=== PATIENT | female | born 1985 | race Caucasian/White ===

== ENCOUNTER 2018-01-24 12:35 | Outpatient (CLI) | payer OTHER ==
[2018-01-24] MEDS ORDERED: GADOBUTROL 7.5 MMOL/7.5 ML VIAL ONE (12:49)
[2018-01-24] MEDS ORDERED: GADOBUTROL 7.5 MMOL/7.5 ML VIAL IVP ONE (13:36)
--- NOTE | 2018-01-24 15:38 | MRI Report ---
EXAMS: MRI BRAIN WITH AND WITHOUT CONTRAST. MRA BRAIN WITHOUT CONTRAST. EXAM DATE: 01/24/2018 01:05 PM. CLINICAL HISTORY: 32-year-old with 6 month history of excruciating headache that wake patient up from sleep COMPARISON: None. TECHNIQUE: MRI: Multiplanar, multisequence T1-weighted and fluid-sensitive MRI sequences of the brain were performed. Sequences optimized for routine evaluation. Other: None. Post-processing: None. IV C ontrast: 6 cc GADAVIST. MRA: Multiplanar, multisequence T1-weighted and fluid-sensitive MRA sequences of the brain were perfo rmed. Other: None. Post-processing: Multiplanar 3D MIP reconstructions. IV Contrast: None. FINDINGS: MRI: Brain Volume: Normal for age. Parenchyma/Dura: No mass, acute infarct or hemorrhage. No white matter lesions identified. Ventricles/Cisterns: No hydrocephalus. No abnormal extra-axial fluid collection or hemorrhage. Orbits: Symmetric and unremarkable. Sella Turcica: The pituitary gland, cavernous sinuses, suprasellar cistern and optic chiasm are unrem arkable. IAC: Symmetric and unremarkable. Vasculature: Normal signal flow void is seen in the major arterial structures at the skull base. Sinuses: No acute appearing sinus disease. Bones: No focal pathologic appearing marrow signal changes. Other: None. MRA: RIGHT Internal Carotid (ICA): No aneurysm, stenosis or anomaly. Middle Cerebral (MCA): No aneurysm, stenosis or anomaly. Anterior Cerebral (STONEY): No aneurysm, stenosis or anomaly. Posterior Cerebral (AIRPORT MANAGER): No aneurysm, stenosis or anomaly. Posterior Communicating (P-COM): No aneurysm, stenosis or anomaly. Vertebral: No aneurysm, stenosis or anomaly in the visualized upper vertebral artery. LEFT Internal Carotid (ICA): No aneurysm, stenosis or anomaly. Middle Cerebral (MCA): No aneurysm, stenosis or anomaly. Anterior Cerebral (STONEY): No aneurysm, stenosis or anomaly. Posterior Cerebral (AIRPORT MANAGER): No aneurysm, stenosis or anomaly. Posterior Communicating (P-COM): No aneurysm, stenosis or anomaly. Vertebral: No aneurysm, stenosis or anomaly in the visualized upper vertebral artery. MIDLINE Anterior Communicating (A-COM): No aneurysm, stenosis or anomaly. Basilar artery: No aneurysm, stenosis or anomaly. Other: None. IMPRESSION: MRI HEAD: 1.No acute infarct, intracranial hemorrhage, mass, hydrocephalus, midline shift, or abnormal postcont rast enhancement. 2. No definite white matter lesions seen. MRA HEAD: 1.No large vessel occlusion. 2. No intracranial aneurysm, stenosis, or vascular malformation. [facility] Referring Provider Line: [phone] SITE ID: [id number]
== END 2018-01-24 12:36 | disposition home or self-care (01) ==
LOC: DI 12:35
PROVIDERS: ATTEND Student in an Organized Health Care Education/Training Program
DX: R51 Headache (principal)
CPT/HCPCS: 70544; 70553; A9585